=== PATIENT | male | born 1945 | race Caucasian/White ===

== ENCOUNTER 2023-11-25 06:16 | Day surgery (SDC) | payer MEDICARE, SELFPAY ==
[2023-11-21 13:38] VITALS: BMI 27.8
--- NOTE | 2023-11-24 11:44 | P.CONAN_ITS ---
Documented by User: Lesa David NP 11/24/23 11:45 HPI - Anesthesia Eval Consult details Narrative: 78yo M for Upper Endoscopy and Colonoscopy [facility] Past Medical History Medical History GERD (gastroesophageal reflux disease) Skin cancer HTN (hypertension) Elevated cholesterol Asbestosis Nephrolithiasis Gout Surgical History Surgical History Hx of bilateral cataract extraction Hx of thyroidectomy H/O colonoscopy Social History Social History Patient Tobacco Use Status: Never used Tobacco Are you DNR?: No Advance Directives: No Advance Directives Information Provided: Yes Nutrition Risks: No Nutritional Risk Meds Allergies Allergy/AdvReac Type Severity Reaction Status Date / Time Influenza Virus Vaccines Allergy Unknown Unknown Verified 11/25/23 06:30 Home Medications Medication Instructions Recorded Confirmed Last Taken Type allopurinol 100 mg tablet 100 mg PO DAILY 11/21/23 11/21/23 Unknown History cholecalciferol (vitamin D3) 50 50 mcg PO DAILY 11/21/23 11/21/23 Unknown History mcg (2,000 unit) capsule (Vitamin D3) gemfibrozil 600 mg tablet 600 mg PO BID 11/21/23 11/21/23 Unknown History losartan 1 tab PO DAILY 11/21/23 11/21/23 Unknown History omeprazole 20 mg capsule,delayed 20 mg PO DAILY 11/21/23 11/21/23 Unknown History release tamsulosin 0.4 mg capsule 0.4 mg PO BEDTIME 11/21/23 11/21/23 Unknown History trazodone 100 mg tablet 100 mg PO BEDTIME 11/21/23 11/21/23 Unknown History vitamin A-vitamin C-vit E-min 1 tab PO DAILY 11/21/23 11/21/23 Unknown History tablet Exam Height,Weight and Vital Signs: Height 5 ft 9 in Weight 85.275 kg Assessment and Plan Assessment Anesthesia Assessment: Chart Reviewed Documented by User: Drkae Oliver MD 11/25/23 07:10 PMFSH Past Medical History Medical History GERD (gastroesophageal reflux disease) Skin cancer HTN (hypertension) Elevated cholesterol Asbestosis Nephrolithiasis Gout Family History Family history of problems with anesthesia: No Surgical History Surgical History Hx of bilateral cataract extraction Hx of thyroidectomy H/O colonoscopy History of Problems with Anesthesia: No Social History Social History Patient Tobacco Use Status: Never used Tobacco Are you DNR?: No Advance Directives: No Advance Directives Information Provided: Yes Nutrition Risks: No Nutritional Risk Meds Allergies Allergy/AdvReac Type Severity Reaction Status Date / Time Influenza Virus Vaccines Allergy Unknown Unknown Verified 11/25/23 06:30 Home Medications Medication Instructions Recorded Confirmed Last Taken Type allopurinol 100 mg tablet 100 mg PO DAILY 11/21/23 11/21/23 Unknown History cholecalciferol (vitamin D3) 50 50 mcg PO DAILY 11/21/23 11/21/23 Unknown History mcg (2,000 unit) capsule (Vitamin D3) gemfibrozil 600 mg tablet 600 mg PO BID 11/21/23 11/21/23 Unknown History losartan 1 tab PO DAILY 11/21/23 11/21/23 Unknown History omeprazole 20 mg capsule,delayed 20 mg PO DAILY 11/21/23 11/21/23 Unknown History release tamsulosin 0.4 mg capsule 0.4 mg PO BEDTIME 11/21/23 11/21/23 Unknown History trazodone 100 mg tablet 100 mg PO BEDTIME 11/21/23 11/21/23 Unknown History vitamin A-vitamin C-vit E-min 1 tab PO DAILY 11/21/23 11/21/23 Unknown History tablet Exam Airway Mallampati Class: II TM Dist: >3cm Neck ROM: Full Loose/Missing/Broken Teeth: No Heart: rrr Lungs: cta b/l Assessment and Plan Assessment Anesthesia Assessment: Anesthesia Plan Discussed and Chart Reviewed Final Anesthetic Review Family History of Problems with Anesthesia: No History of Problems with Anesthesia: No ASA Class: II Final Preanesthetic Review: No Changes in Pt Med Stat, Meds/Allgs Chart Reviewed, Consent Obtained/Reviewed and Anes Risks/Benef Reviewed Procedure Risk: Intermediate Anesthetic Plan Disposition: Standard PACU
[2023-11-25 06:26] VITALS: BMI 27.6
[2023-11-25] MEDS: Lactated Ringers 1,000 ML 100 ML IVCONT (06:43)
[2023-11-25 06:53] VITALS: BP 136/68; PULSE 56; RESP 18; TEMP 36.8; O2SAT 99
--- NOTE | 2023-11-25 07:34 | MHC.SHP ---
Pre-Procedural Eval Section A - 24 Hr Update-Section A only Date of Service: 11/25/23 Section B - Complete if H&P > 30 days Chief Complaint: Gastro-esophageal reflux disease without esophagit Details of Present Illness: see H*P no changes Relevant Family History (Specify if Yes): No Relevant Social History: None Present Medications: see Short Stay Collaborative assessment Medical History: No relevant PMH Allergies: Allergies Allergy/AdvReac Type Severity Reaction Status Date / Time Influenza Virus Vaccines Allergy Unknown Unknown Verified 11/25/23 06:30 Review of Systems Sugical H&P ROS: Negative: Constitution, Cardiovascular, Respiratory, Neurological, Psychiatric, Hem-Onc, Allergic/Immunologic, Gastrointestinal, Genitourinary, Musculoskeletal, Integumentary, Endocrine and Eyes/Ears/Nose/Throat Exam Surgical H&P Exam: Normal: HEENT, Normal: Heart, Normal: Lungs, Normal: Extremities, Normal: Abdomen, Normal: Skin and Normal: Neurological Plan Diagnosis/Plan: Unchanged I have reviewed the history and physical and performed a pertinent physical examination on my patient. No changes have occurred unless specified. Time Spent With Patient Time: Total time managing care of this patient today ____ minutes.
[2023-11-25 08:09] VITALS: BP 92/45; PULSE 53; RESP 16; TEMP 36.4; O2SAT 95
--- NOTE | 2023-11-25 08:17 | P.BOP_ITS ---
Brief Operative Note Date of Service: 11/25/23 Pre-op diagnosis: gerd screening Post-op diagnosis: same Procedure: egd colon Surgeon: Andrew Pittman MD Anesthesia: MAC Was an Automation Tender used for this Procedure?: No Estimated blood loss (mL): 2 Pathology: other Condition: stable Disposition: PACU
[2023-11-25 08:24] VITALS: BP 130/57; PULSE 52; RESP 16; TEMP 36.4; O2SAT 97
--- NOTE | 2023-11-25 08:59 | OP_ITS ---
DATE OF SERVICE: 11/25/2023 SURGEON: Andrew Pittman MD INDICATIONS: 1. Gastroesophageal reflux disease. 2. Colon cancer screening. PREOPERATIVE DIAGNOSIS: POSTOPERATIVE DIAGNOSIS: PROCEDURE PERFORMED: 1. Upper endoscopy with biopsy. 2. Colonoscopy to the terminal ileum with biopsy. ESTIMATED BLOOD LOSS: COMPLICATIONS: ANESTHESIA: Monitored anesthesia care. ASSISTANTS: SPECIMENS: DESCRIPTION OF PROCEDURE: A history and physical was performed. The risks and benefits of the procedure were explained to the patient. Informed consent was obtained. The patient was placed in the left lateral decubitus position. The Olympus video gastroscope was introduced into the esophagus, stomach, and duodenum. Examination was performed. The scope was removed. He tolerated the procedure well and was repositioned for colonoscopy. A digital rectal exam was performed and was found to be normal. The Olympus pediatric video colonoscope was introduced into the rectum and advanced to the cecum. The cecum was identified by transillumination, palpation, and identification of ileocecal valve. Examination was performed. The scope was removed. He tolerated both procedures well and was returned to recovery in stable condition. FINDINGS: Upper Endoscopy: 1. 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 Biopsies were obtained from the EG junction. There was a 5 cm hiatal hernia. 2. Stomach: The stomach was normal. Biopsies were obtained from the antrum. 3. Duodenum: The bulb and second portion were normal. Colonoscopy: The terminal ileum was examined and appeared normal. The visualized colonic mucosa was normal. There were a total of 2 polyps identified and removed with biopsy forceps. Both measured less than 5 mm and were located in the cecum and at 60 cm. There was moderate diverticulosis throughout the colon. Retroflexed examination showed some small internal hemorrhoids. IMPRESSION: 1. Gastroesophageal reflux disease. 2. Hiatal hernia. 3. Colon polyps. RECOMMENDATION: Follow up the biopsy results. MD ASHVIN Blackman/DENVERL / [id number]
== END 2023-11-25 09:13 | disposition home or self-care (01) ==
PROVIDERS: Visit Provider Internal Medicine Gastroenterology
PROC: (CPT 43239; principal; 2023-11-25 07:30)
DX: K20.90 Esophagitis, unspecified without bleeding (principal); K21.9 Gastro-esophageal reflux disease without esophagitis; K44.9 Diaphragmatic hernia without obstruction or gangrene; Z12.11 Encounter for screening for malignant neoplasm of colon; D12.0 Benign neoplasm of cecum; K57.30 Diverticulosis of large intestine without perforation or abscess without bleeding; K64.8 Other hemorrhoids
CPT/HCPCS: 43239; 45380; 88305; 88313; 88342; J2704

== ENCOUNTER 2023-12-30 13:40 | Outpatient (REF) | payer MEDICARE, SELFPAY | END 2023-12-30 13:41 | disposition home or self-care (01) | LOC: HO.LNP 13:40 | PROVIDERS: Visit Provider Internal Medicine Gastroenterology | DX: A04.8 Other specified bacterial intestinal infections (principal) | CPT/HCPCS: 87338 ==